=== PATIENT | female | born 1980 | race Caucasian/White ===

== ENCOUNTER 2017-02-10 21:20 | Emergency (ER) | payer OTHER ==
[2017-02-10 21:20] VITALS: BMI 31.1
[2017-02-10 21:39] VITALS: BP 133/84; PULSE 89; RESP 20; TEMP 98.4
[2017-02-10 22:05] LABS: HCG,QUALITATIVE URINE NEGATIVE (NEGATIVE)
[2017-02-10 22:09] LABS: SQUAMOUS EPITHIAL 8 /hpf (0-5); URINE BACTERIA FEW (<OCC); URINE BILIRUBIN NEGATIVE (NEGATIVE); URINE BLOOD NEGATIVE (NEGATIVE); URINE CLARITY Hazy (Clear); URINE COLOR Yellow (YELLOW); URINE GLUCOSE (UA) NORMAL (Normal); URINE LEUKOCYTE ESTERASE 3+ Leu/uL (Negative); URINE NITRATE NEGATIVE (NEGATIVE); URINE PROTEIN NEGATIVE (NEGATIVE); URINE UROBILINOGEN NORMAL mg/dL (0.2-1.0)
--- NOTE | 2017-02-10 22:42 | C.PDOC ---
Time Seen by Provider: 02/10/17 21:38 Chief Complaint (Nursing): Abdominal Pain History Per: Patient, Family Onset/Duration Of Symptoms: Days (2) Severity: Moderate Location Of Pain/Discomfort: Suprapubic Radiation Of Pain To:: Back Quality Of Discomfort: "Pain" Associated Symptoms: Back Pain (low) Exacerbating Factors: None Alleviating Factors: None Last Bowel Movement: Today Additional History Per: Prior Records Abnormal Vaginal Bleeding: No Past Medical History Reviewed: Historical Data, Nursing Documentation, Vital Signs Vital Signs: Last Vital Signs Temp 98.4 F 02/10/17 21:38 Pulse 89 02/10/17 21:38 Resp 20 02/10/17 21:38 BP 133/84 02/10/17 21:38 Pulse Ox 96 02/10/17 21:38 - Medical History PMH: No Chronic Diseases Surgical History: No Surg Hx - [facility] Procedures ASPIRATION SKIN & SUBQ (04/28/14) DELIVERY OF PRODUCTS OF CONCEPTION, EXTERNAL APPROACH (08/15/16) EPISIOTOMY (01/08/13) LOCAL EXCIS BREAST LES (08/20/14) MEDICAL INDUCTION LABOR (01/08/13) Family History: States: Unknown Family Hx - Social History Hx Tobacco Use: No Hx Alcohol Use: No Hx Substance Use: No - Immunization History Hx Tetanus Toxoid Vaccination: No Hx Influenza Vaccination: No Hx Pneumococcal Vaccination: No Review Of Systems Except As Marked, All Systems Reviewed And Found Negative. Constitutional: Negative for: Fever, Weakness Cardiovascular: Negative for: Chest Pain Respiratory: Negative for: Shortness of Breath Gastrointestinal: Negative for: Vomiting, Diarrhea Genitourinary: Negative for: Vaginal Discharge, Vaginal Bleeding Musculoskeletal: Negative for: Neck Pain Skin: Negative for: Rash Neurological: Negative for: Weakness, Numbness, Seizures, Altered Mental Status Physical Exam - Physical Exam Appears: Non-toxic, No Acute Distress Skin: Normal Color, Warm, Dry, No Rash Head: Atraumatic, Normacephalic Eye(s): bilateral: Normal Inspection, PERRL, EOMI Oral Mucosa: Moist Neck: Normal ROM, Supple Cardiovascular: Rhythm Regular Respiratory: Normal Breath Sounds, No Accessory Muscle Use Gastrointestinal/Abdominal: Soft, Tenderness (suprapubic), No Distention, No Guarding, No Rebound Back: No CVA Tenderness, No Vertebral Tenderness Extremity: Normal ROM Neurological/Psych: Oriented x3, Normal Motor, Normal Sensation ED Course And Treatment - Laboratory Results Interpretation Of Abnormal: UTI. Urine C&S sent. Urine POC: Negative O2 Sat by Pulse Oximetry: 96 Pulse Ox Interpretation: Normal Reassessment Condition: Improved Disposition Counseled Patient/Family Regarding: Studies Performed, Diagnosis, Need For Followup, Rx Given - Disposition Referrals: [facility] at [facility] [Outside] Disposition: HOME/ ROUTINE Disposition Time: 22:44 Condition: STABLE Additional Instructions: Drink plenty of fluids. Follow up with your doctor or in the clinic within 4-5 days. Return to the ER if you develop fever, vomiting, trouble urinating, worsening of symptoms or if you have any other concerns. Prescriptions: Ciprofloxacin [Cipro] 1 tab PO BID #10 tab Instructions: Urinary Tract Infection in Women (ED) - Clinical Impression Clinical Impression: UTI (urinary tract infection)
[2017-02-10 23:16] VITALS: O2SAT 100
== END 2017-02-10 23:05 | disposition home or self-care (01) ==
LOC: C.ER 21:20 → SUPCPDRO 21:20 → C.ER 23:05
DX: N39.0 Urinary tract infection, site not specified (principal)

== ENCOUNTER 2017-04-22 19:53 | Emergency (ER) | payer SELFPAY ==
[2017-04-22 19:54] VITALS: BMI 31.1
[2017-04-22 20:11] VITALS: O2SAT 98
--- NOTE | 2017-04-22 20:17 | C.PDOC ---
History Of Present Illness Patient presents to the ED with complaints of worsening abdominal pain for two days. Patient notes nausea and is A2. Patient denies vomiting, fever, chills, or diarrhea. Time Seen by Provider: 04/22/17 20:16 Chief Complaint (Nursing): Abdominal Pain History Per: Patient History/Exam Limitations: no limitations Onset/Duration Of Symptoms: Worse Since (2 days ) Current Symptoms Are (Timing): Still Present Severity: Mild Pain Scale Rating Of: 4 Location Of Pain/Discomfort: Diffuse Radiation Of Pain To:: None Quality Of Discomfort: "Pain" Associated Symptoms: Nausea. denies: Fever, Chills, Vomiting, Diarrhea Exacerbating Factors: None Alleviating Factors: None Recent travel outside of the [place]: No Abnormal Vaginal Bleeding: No : 5 Para: 3 Miscarriage: 2 Past Medical History Reviewed: Historical Data, Nursing Documentation, Vital Signs Vital Signs: Last Vital Signs Temp 98.5 F 04/22/17 20:08 Pulse 79 04/22/17 20:08 Resp 20 04/22/17 20:08 BP 114/67 04/22/17 20:08 Pulse Ox 98 04/22/17 20:58 - [facility] Procedures ASPIRATION SKIN & SUBQ (04/28/14) DELIVERY OF PRODUCTS OF CONCEPTION, EXTERNAL APPROACH (08/15/16) EPISIOTOMY (01/08/13) LOCAL EXCIS BREAST LES (08/20/14) MEDICAL INDUCTION LABOR (01/08/13) Family History: States: Unknown Family Hx - Social History Hx Tobacco Use: No Hx Alcohol Use: No Hx Substance Use: No - Immunization History Hx Tetanus Toxoid Vaccination: No Hx Influenza Vaccination: No Hx Pneumococcal Vaccination: No Review Of Systems Constitutional: Negative for: Fever, Chills Gastrointestinal: Positive for: Nausea, Abdominal Pain. Negative for: Vomiting , Diarrhea Physical Exam - Physical Exam Appears: Non-toxic, No Acute Distress Skin: Warm, Dry Head: Atraumatic Eye(s): bilateral: Normal Inspection Oral Mucosa: Moist Neck: Supple Chest: Symmetrical, No Deformity Cardiovascular: Rhythm Regular, No Murmur Respiratory: No Rales, No Rhonchi, No Wheezing Gastrointestinal/Abdominal: Soft, Tenderness (diffuse tenderness), Distention, No Guarding, No Rebound Extremity: Normal ROM, No Tenderness Neurological/Psych: Oriented x3 ED Course And Treatment - Laboratory Results Result Diagrams: 04/22/17 20:58 04/22/17 20:58 O2 Sat by Pulse Oximetry: 98 (room air ) Pulse Ox Interpretation: Normal Progress Note: Labs and blood work were ordered. Patient was given IV fluids. Reevaluation Time: 23:46 Reassessment Condition: Improved Disposition Counseled Patient/Family Regarding: Studies Performed, Diagnosis, Need For Followup, Rx Given - Disposition Referrals: [facility] at [facility] [Outside] [facility] [Outside] Disposition: HOME/ ROUTINE Disposition Time: 20:16 Condition: FAIR Additional Instructions: plase return if symptoms recur Prescriptions: Naproxen [Naprosyn] 1 tab PO BID PRN #15 tab PRN Reason: Pain Nitrofurantoin Macrocrystals [Macrobid] 1 cap PO BID #14 cap Instructions: Ovarian Cyst (ED), Urinary Tract Infection in Women (DC) Forms: [employer] (Croatian) - Clinical Impression Clinical Impression: Ruptured cyst of ovary, UTI (urinary tract infection) - Scribe Statement The provider has reviewed the documentation as recorded by the Scribe Brittany Martinez All medical record entries made by the Scribe were at my direction and personally dictated by me. I have reviewed the chart and agree that the record accurately reflects my personal performance of the history, physical exam, medical decision making, and the department course for this patient. I have also personally directed, reviewed, and agree with the discharge instructions and disposition.
[2017-04-22] MEDS ORDERED: Sodium Chloride 0.9% 1,000 ML IV ONE (20:23)
[2017-04-22 21:05] LABS: BASO # 0.1 K/uL (0.0-0.2); BASO % 0.9 % (0.0-2.0); EOS # 0.5 K/uL (0.0-0.7); EOS % 7.1 % (0.0-4.0); HEMATOCRIT 33.5 % (34.0-47.0); LYMPH # 3.2 K/uL (1.0-4.3); MEAN CELL VOLUME 82.2 fL (81.0-99.0); MEAN CORPUSCULAR HEMOGLOBIN 27.1 pg (27.0-31.0); MEAN CORPUSCULAR HGB CONC 32.9 g/dL (33.0-37.0); MEAN PLATELET VOLUME 10.7 fL (7.2-11.7); MONO # 0.7 K/uL (0.0-0.8); MONO % 9.4 % (0.0-10.0); NRBC % 0.1 % (0.0-2.0); RED CELL DISTRIBUTION WIDTH 14.2 % (11.5-14.5); WHITE BLOOD COUNT 7.5 K/uL (4.8-10.8)
[2017-04-22 21:13] LABS: CHLORIDE 106 mmol/L (98-107); INR 1.1; POTASSIUM 3.8 mmol/L (3.6-5.2); SODIUM 139 mmol/L (132-148)
[2017-04-22 21:15] LABS: BILIRUBIN,TOTAL 0.5 mg/dL (0.2-1.3); CARBON DIOXIDE 20 mmol/L (22-30); GFR AFRICAN-AMERICAN > 60
[2017-04-22 21:16] LABS: ALB/GLOB RATIO 1.3 (1.0-2.1); ALKALINE PHOSPHATASE 40 U/L (38-126); ALT/SGPT 32 U/L (9-52); AST/SGOT 24 U/L (14-36); BLOOD UREA NITROGEN 14 mg/dL (7-17); CALCIUM 8.6 mg/dl (8.6-10.4); GLUCOSE,RANDOM 106 mg/dL (65-105); TOTAL PROTEIN 7.6 g/dL (6.3-8.3)
[2017-04-22 21:20] LABS: RBC URINE 1 /hpf (0-3); URINE BILIRUBIN NEGATIVE (NEGATIVE); URINE BLOOD NEGATIVE (NEGATIVE); URINE COLOR Yellow (YELLOW); URINE GLUCOSE (UA) NORMAL (Normal); URINE KETONE NEGATIVE (NEGATIVE); URINE LEUKOCYTE ESTERASE 2+ Leu/uL (Negative); URINE PROTEIN NEGATIVE (NEGATIVE); WBC URINE 20 /hpf (0-5)
[2017-04-22] MEDS ORDERED: Iohexol 300 100 ML IJ ONE (22:04)
--- NOTE | 2017-04-22 22:58 | CT ---
EXAM: CT Abdomen and Pelvis With Intravenous Contrast CLINICAL HISTORY: 36 years old, female; Pain; Abdominal pain; Generalized; Additional info: Abd pain TECHNIQUE: Axial computed tomography images of the abdomen and pelvis with intravenous contrast. All CT scans at this facility use one or more dose reduction techniques, viz.: automated exposure control; ma/kV adjustment per patient size (including targeted exams where dose is matched to indication; i.e. head); or iterative reconstruction technique. Coronal and sagittal reformatted images were created and reviewed. CONTRAST: 100 mL of omnipaque 300 administered intravenously. COMPARISON: CT - ABD PELVIS W/O PO OR IV CONT 11/10/2015 12:16:31 PM FINDINGS: Limitations: Motion artifact - mild. Lower thorax: No acute findings. ABDOMEN: Liver: Unremarkable. No mass. Gallbladder and bile ducts: No calcified stones. No ductal dilation. Pancreas: No ductal dilation. No mass. Spleen: No splenomegaly. Adrenals: No mass. Kidneys and ureters: Too small to characterize lesion within LEFT kidney. No hydronephrosis. Stomach and bowel: No definite mural thickening. No obstruction. Appendix: Normal caliber. No inflammation. PELVIS: Bladder: Unremarkable. Reproductive: 2.2 x 1.7 x 2.1 cm peripherally enhancing hypodensity with crenulated margins within RIGHT ovary. ABDOMEN and PELVIS: Intraperitoneal space: No significant fluid collection. No free air. Bones/joints: No acute fracture. Soft tissues: Small ventral hernia containing fat. Small umbilical hernia containing fat. Vasculature: Unremarkable. No aneurysm. Lymph nodes: No pathologically enlarged lymph nodes. IMPRESSION: 1. Involuting or ruptured RIGHT ovarian follicle/cyst. 2. Incidental/non-acute findings are described above.
[2017-04-23 00:01] VITALS: BP 102/67; PULSE 74; RESP 18; TEMP 98.4
== END 2017-04-23 00:10 | disposition home or self-care (01) ==
LOC: C.ER 19:53
DX: N39.0 Urinary tract infection, site not specified (principal); N83.201 Unspecified ovarian cyst, right side
CPT/HCPCS: 74177; 80053; 81001; 83690; 84703; 85025; 85610; 85730; 96360; 99284; J7040; Q9967

== ENCOUNTER 2018-02-08 22:27 | Emergency (ER) | payer OTHER ==
[2018-02-08 22:28] VITALS: BMI 31.1
[2018-02-08 22:52] VITALS: BP 118/80; PULSE 83; RESP 20; TEMP 98.9; O2SAT 99
[2018-02-08] MEDS ORDERED: Naproxen 550 mg Tab PO STA (23:29)
[2018-02-08] MEDS ORDERED: Naproxen 550 mg Tab PO ONE (23:31)
[2018-02-08 23:46] LABS: HCG,QUALITATIVE URINE NEGATIVE (NEGATIVE)
[2018-02-08 23:51] LABS: SQUAMOUS EPITHIAL 40 /hpf (0-5); URINE BACTERIA RARE (<OCC); URINE BILIRUBIN NEGATIVE (NEGATIVE); URINE BLOOD 2+ (NEGATIVE); URINE CLARITY Hazy (Clear); URINE COLOR Yellow (YELLOW); URINE GLUCOSE (UA) NORMAL (Normal); URINE LEUKOCYTE ESTERASE 3+ Leu/uL (Negative); URINE PROTEIN 1+ mg/dL (NEGATIVE)
--- NOTE | 2018-02-09 00:09 | C.PDOC ---
History Of Present Illness 37 year old female presents to the ER with a complaint of pain to her right breast for the past 4 days, associated with headache. Patient states she had a mass removed from her right breast 3 years ago, subsequent mammogram was normal , however, patient has not followed up since then. Patient now states she feels malaise with pain that radiates from her right side down to her back. Denies fever or UTI symptoms. Time Seen by Provider: 02/08/18 23:15 Chief Complaint (Nursing): Headache History Per: Patient History/Exam Limitations: no limitations Onset/Duration Of Symptoms: Days Current Symptoms Are (Timing): Still Present Preceeding Symptoms: None Associated Symptoms: denies: Photophobia, Blurred Vision, Nausea, Vomiting, Extremity Weakness Recent travel outside of the [place]: No Past Medical History Reviewed: Historical Data, Nursing Documentation, Vital Signs Vital Signs: Last Vital Signs Temp 98.9 F 02/08/18 22:46 Pulse 83 02/08/18 22:46 Resp 20 02/08/18 22:46 BP 118/80 02/08/18 22:46 Pulse Ox 99 02/09/18 01:19 - [facility] Procedures ASPIRATION SKIN & SUBQ (04/28/14) DELIVERY OF PRODUCTS OF CONCEPTION, EXTERNAL APPROACH (08/15/16) EPISIOTOMY (01/08/13) LOCAL EXCIS BREAST LES (08/20/14) MEDICAL INDUCTION LABOR (01/08/13) Family History: States: Unknown Family Hx - Social History Hx Tobacco Use: No Hx Alcohol Use: No Hx Substance Use: No - Immunization History Hx Tetanus Toxoid Vaccination: No Hx Influenza Vaccination: No Hx Pneumococcal Vaccination: No Review Of Systems Constitutional: Positive for: Malaise. Negative for: Fever Genitourinary: Negative for: Dysuria, Hematuria Musculoskeletal: Positive for: Other (Right breast pain) Neurological: Negative for: Weakness, Numbness Physical Exam - Physical Exam Appears: Non-toxic Skin: Warm, Dry Head: Atraumatic, Normacephalic Eye(s): bilateral: Normal Inspection, PERRL, EOMI Oral Mucosa: Moist Neck: Normal, Supple Chest: No Tenderness, Other (Right breast scar tissue with induration at surgical site. No erythema or nipple discharge, no skin changes or warmth.) Cardiovascular: Rhythm Regular Respiratory: Normal Breath Sounds, No Rales, No Rhonchi, No Wheezing Extremity: Normal ROM (x4) Neurological/Psych: Oriented x3, Normal Speech, Normal Motor, Normal Sensation ED Course And Treatment O2 Sat by Pulse Oximetry: 99 (room air) Pulse Ox Interpretation: Normal Progress Note: Urinalysis ordered, results were positive for UTI, will discharge with naproxen, keflex, and instructions to follow up with PMD. Disposition Counseled Patient/Family Regarding: Diagnosis, Need For Followup, Rx Given - Disposition Referrals: Lucius Paulino MD [Staff Provider] - Opal Moya MD [Staff Provider] - Disposition: HOME/ ROUTINE Disposition Time: 00:04 Condition: STABLE Additional Instructions: Please follow up with private doctor Take medications as directed Increase fluids Follow up with general surgeon- call for appointment Return to ER if worse Prescriptions: Cephalexin [cephalexin] 1,000 mg PO BID #28 cap Naproxen [Naprosyn] 1 tab PO BID PRN #20 tab PRN Reason: Pain Instructions: Urinary Tract Infection, Adult (DC) Forms: [employer] (Nauruan) - Clinical Impression Clinical Impression: UTI (urinary tract infection), Headache, Pain of right breast - Scribe Statement The provider has reviewed the documentation as recorded by the Scribe Roman Aaron All medical record entries made by the Scribe were at my direction and personally dictated by me. I have reviewed the chart and agree that the record accurately reflects my personal performance of the history, physical exam, medical decision making, and the department course for this patient. I have also personally directed, reviewed, and agree with the discharge instructions and disposition.
== END 2018-02-09 00:29 | disposition home or self-care (01) ==
LOC: C.ER 22:27
DX: N64.4 Mastodynia (principal); R51 Headache; N39.0 Urinary tract infection, site not specified

== ENCOUNTER 2018-03-15 14:36 | Emergency (ER) | payer MEDICAID, OTHER ==
[2018-03-15 14:36] VITALS: BMI 31.1
[2018-03-15 15:16] VITALS: RESP 18
[2018-03-15] MEDS ORDERED: Sodium Chloride 0.9% 1,000 ML IV ONE (15:59)
[2018-03-15] MEDS ORDERED: Sodium Chloride 0.9% 1,000 ML ONE (16:16)
[2018-03-15 16:28] LABS: HCG,QUALITATIVE URINE NEGATIVE (NEGATIVE)
[2018-03-15 16:30] LABS: BASO # 0.1 K/uL (0.0-0.2); BASO % 1.1 % (0.0-2.0); EOS # 0.5 K/uL (0.0-0.7); HEMOGLOBIN 11.3 g/dL (11.0-16.0); LYMPH # 2.9 K/uL (1.0-4.3); LYMPH % 41.7 % (20.0-40.0); MEAN CELL VOLUME 80.3 fL (81.0-99.0); MEAN CORPUSCULAR HEMOGLOBIN 27.9 pg (27.0-31.0); MEAN CORPUSCULAR HGB CONC 34.7 g/dL (33.0-37.0); MEAN PLATELET VOLUME 10.2 fL (7.2-11.7); MONO # 0.9 K/uL (0.0-0.8); MONO % 13.7 % (0.0-10.0); NEUT # 2.4 K/uL (1.8-7.0); NEUT % 35.5 % (50.0-75.0); NRBC % 0.2 % (0.0-2.0); RBC 4.04 Mil/uL (3.80-5.20); RED CELL DISTRIBUTION WIDTH 13.7 % (11.5-14.5); WHITE BLOOD COUNT 6.8 K/uL (4.8-10.8)
--- NOTE | 2018-03-15 16:35 | C.PDOC ---
History Of Present Illness 37yo female, no past medical history, comes to ER with complaint of 1 week of cramping lower abdominal pain. Patient is complaining of bilateral low back pain as well, worsening over pas 2 days. Patient has been taking Motrin with no relief of pain. She complains of a headache from the top of her head to her neck but states it is currently not present. She also states she has "palpitations" and is "afraid to sleep." She reports a normal appetite, states her last bowel movement was this morning and denies any vomiting, diarrhea or constipation. Additionally, she states she has been having "painful sex" for two weeks; denies any vaginal discharge, odor or bleeding. She denies any weakness, chills, chest pain, or shortness of breath. Time Seen by Provider: 03/15/18 15:29 Chief Complaint (Nursing): Abdominal Pain History Per: Patient History/Exam Limitations: no limitations Onset/Duration Of Symptoms: Persistent Location Of Pain/Discomfort: Diffuse Quality Of Discomfort: Cramping, "Pain" Associated Symptoms: denies: Nausea, Vomiting, Diarrhea Additional History Per: Patient Abnormal Vaginal Bleeding: No Past Medical History Reviewed: Historical Data, Nursing Documentation, Vital Signs Vital Signs: Last Vital Signs Temp 98.0 F 03/15/18 17:35 Pulse 66 03/15/18 17:35 Resp 18 03/15/18 17:35 BP 127/82 03/15/18 17:35 Pulse Ox 99 03/15/18 17:35 - Medical History PMH: No Chronic Diseases Surgical History: No Surg Hx - [facility] Procedures ASPIRATION SKIN & SUBQ (04/28/14) DELIVERY OF PRODUCTS OF CONCEPTION, EXTERNAL APPROACH (08/15/16) EPISIOTOMY (01/08/13) LOCAL EXCIS BREAST LES (08/20/14) MEDICAL INDUCTION LABOR (01/08/13) Family History: States: No Known Family Hx, Unknown Family Hx - Social History Hx Tobacco Use: No Hx Alcohol Use: No Hx Substance Use: No - Immunization History Hx Tetanus Toxoid Vaccination: No Hx Influenza Vaccination: No Hx Pneumococcal Vaccination: No Review Of Systems Except As Marked, All Systems Reviewed And Found Negative. Cardiovascular: Negative for: Chest Pain Respiratory: Negative for: Shortness of Breath Gastrointestinal: Positive for: Abdominal Pain. Negative for: Nausea, Vomiting , Diarrhea, Constipation Musculoskeletal: Positive for: Back Pain Physical Exam - Physical Exam Appears: Non-toxic, No Acute Distress Skin: Normal Color, Warm, Dry Head: Atraumatic, Normacephalic Eye(s): bilateral: Normal Inspection Neck: Normal ROM, Supple Chest: Symmetrical Cardiovascular: Rhythm Regular Respiratory: Normal Breath Sounds Gastrointestinal/Abdominal: Soft, Tenderness (supraubic), No Guarding, No Rebound Back: Paraspinal Tenderness (mild lower back tenderness) Extremity: Normal ROM, No Pedal Edema, No Deformity Neurological/Psych: Oriented x3, Normal Speech, Normal Cognition, Normal Motor, Normal Sensation ED Course And Treatment - Laboratory Results Result Diagrams: 03/15/18 16:26 03/15/18 16:26 Lab Interpretation: Normal (normal UA) Urine POC: Negative O2 Sat by Pulse Oximetry: 98 (RA) Pulse Ox Interpretation: Normal - Radiology CXR: Interpreted by Me CXR Interpretation: Yes: No Acute Disease - Other Rad abd x 2 X-Ray: Interpreted by Me (+FOS) Reevaluation Time: 17:48 Reassessment Condition: Improved Medical Decision Making Medical Decision Making: Plan: * Labs * Urinalysis * XR Obstructive series * IV Fluids * Toradol 30mg IVP acute on chronic constipation Disposition Doctor Will See Patient In The: Office Counseled Patient/Family Regarding: Studies Performed, Diagnosis - Disposition Disposition: HOME/ ROUTINE Disposition Time: 17:49 Condition: GOOD Forms: [facility] (Persian) - Clinical Impression Clinical Impression: Abdominal pain, colicky - Scribe Statement The provider has reviewed the documentation as recorded by the Serena Patel Provider Attestation: All medical record entries made by the Serena were at my direction and personally dictated by me. I have reviewed the chart and agree that the record accurately reflects my personal performance of the history, physical exam, medical decision making, and the department course for this patient. I have also personally directed, reviewed, and agree with the discharge instructions and disposition.
[2018-03-15 16:45] LABS: ALB/GLOB RATIO 1.3 (1.0-2.1); ALBUMIN 4.4 g/dL (3.5-5.0); ALT/SGPT 35 U/L (9-52); AST/SGOT 22 U/L (14-36); BLOOD UREA NITROGEN 9 mg/dL (7-17); CALCIUM 9.5 mg/dl (8.6-10.4); GFR AFRICAN-AMERICAN > 60; GFR NON-AFRICAN AMERICAN > 60; LIPASE 134 U/L (23-300)
[2018-03-15 16:48] LABS: SQUAMOUS EPITHIAL 1 /hpf (0-5); URINE BACTERIA RARE (<OCC); URINE BILIRUBIN NEGATIVE (NEGATIVE); URINE BLOOD NEGATIVE (NEGATIVE); URINE CLARITY Clear (Clear); URINE COLOR Yellow (YELLOW); URINE GLUCOSE (UA) NORMAL (Normal); URINE LEUKOCYTE ESTERASE NEG Leu/uL (Negative); URINE PROTEIN NEGATIVE (NEGATIVE); URINE UROBILINOGEN NORMAL mg/dL (0.2-1.0)
--- NOTE | 2018-03-15 17:01 | RAD ---
Date of service: 03/15/2018 PROCEDURE: Radiographs of the chest and abdomen (obstructive series) HISTORY: Abdominal pain COMPARISON: 11/10/2015. TECHNIQUE: AP radiograph of the chest, with upright and supine radiographs of the abdomen. FINDINGS: CHEST: Lungs: Well inflated and clear. Cardiovascular: Normal size heart. No pulmonary vascular congestion. Pleura: No pleural fluid. No pneumothorax. Other findings: None. ABDOMEN AND PELVIS: Bowel: Moderate amount stool in the colon. The bowel gas pattern is nonspecific. Bones: Unremarkable. Other findings: None. IMPRESSION: Constipation. Nonspecific nonobstructive bowel gas pattern. Clear lungs.
[2018-03-15 17:38] VITALS: BP 127/82; PULSE 66; TEMP 98
[2018-03-15 17:49] VITALS: O2SAT 98
== END 2018-03-15 18:15 | disposition home or self-care (01) ==
LOC: C.ER 14:36
DX: R10.84 Generalized abdominal pain (principal)
CPT/HCPCS: 74022; 80053; 81001; 83690; 84703; 85025; 96361; 96374; 99284; J1885; J7030